=== PATIENT | female | born 1960 | race Caucasian/White ===

== ENCOUNTER → 2019-05-14 | Outpatient (CLI) | payer MEDICARE | END | disposition home or self-care (01) | LOC: CFH 14:01 | PROVIDERS: ATTEND Internal Medicine | DX: M16.11 Unilateral primary osteoarthritis, right hip (principal); M89.9 Disorder of bone, unspecified | CPT/HCPCS: 72192 ==

== ENCOUNTER 2019-08-19 06:58 | Outpatient (CLI) | payer MEDICARE | END 2019-08-19 23:59 | disposition home or self-care (01) | LOC: CFH 06:58 | PROVIDERS: ATTEND Family Medicine | DX: R94.5 Abnormal results of liver function studies (principal); Z90.49 Acquired absence of other specified parts of digestive tract | CPT/HCPCS: 76700 ==